=== PATIENT | female | born 1995 | race Caucasian/White ===

== ENCOUNTER 2019-08-23 10:43 | Emergency (ER) | payer MEDICAID ==
[~2019-08-23] VITALS: Ht 170.2 cm; Wt 56.2 kg
[2019-08-23] MEDS ORDERED: LORAZEPAM 0.5 MG TABLET PO ONE (11:00)
[2019-08-23] MEDS ORDERED: LORAZEPAM 0.5 MG TABLET ONE (11:17)
--- NOTE | 2019-08-23 11:23 | NUR ---
PT IS IN ROOM #1A. DR SHAH EVALUATED THE PT.
[2019-08-23 11:25] LABS: BASOPHILS # (AUTO) 0.1 K/uL (0.0-8.0); BASOPHILS % (AUTO) 0.5 % (0.0-2.0); EOSINOPHILS # (AUTO) 0.1 K/uL (0.0-0.7); EOSINOPHILS % (AUTO) 1.1 % (0.0-7.0); HEMATOCRIT 40.6 % (31.2-41.9); HEMOGLOBIN 13.5 g/dL (10.9-14.3); LYMPHOCYTES # (AUTO) 1.2 K/uL (20.0-40.0); LYMPHOCYTES % (AUTO) 12.8 % (20.5-51.5); MEAN CORPUSCULAR HEMOGLOBIN 31.9 uug (24.7-32.8); MEAN CORPUSCULAR HGB CONC 33 g/dL (32.3-35.6); MEAN CORPUSCULAR VOLUME 95.8 fL (75.5-95.3); MONOCYTES # (AUTO) 0.4 K/uL (2.0-10.0); MONOCYTES % (AUTO) 4.2 % (0.0-11.0); NEUTROPHILS # (AUTO) 7.6 K/uL (1.8-8.9); NEUTROPHILS % (AUTO) 81.4 % (38.5-71.5); PLATELET COUNT (AUTO) 236 K/uL (179-408); RED BLOOD CELL COUNT(AUTO) 4.24 MIL/uL (3.63-4.92); WHITE BLOOD COUNT (AUTO) 9.3 K/uL (3.8-11.8)
[2019-08-23 11:46] LABS: CARBON DIOXIDE 22 mmol/L (21-32); CHLORIDE 106 mmol/L (98-107); CREATININE 0.8 mg/dL (0.6-1.3); GLUCOSE 96 mg/dL (74-106); POTASSIUM 3.7 mmol/L (3.5-5.1); UREA NITROGEN, BLOOD 9 mg/dL (7-18)
[2019-08-23 11:53] LABS: ALANINE AMINOTRANSFERASE 70 U/L (14-59); ALKALINE PHOSPHATASE 49 U/L (50-136); ASPARTATE AMINOTRANSFERASE 60 U/L (15-37); BILIRUBIN,DIRECT 0.2 mg/dL (0.0-0.2); BILIRUBIN,TOTAL 0.7 mg/dL (0.2-1.0); LIPASE 126 U/L (73-393); TOTAL PROTEIN, SERUM 7.9 g/dL (6.4-8.2)
[2019-08-23] MEDS ORDERED: ONDANSETRON ODT 4 MG TAB.RAPDIS SL ONE (12:45)
[2019-08-23] MEDS ORDERED: ONDANSETRON ODT 4 MG TAB.RAPDIS ONE (12:46)
[2019-08-23 13:43] VITALS: BP 126/69
--- NOTE | 2019-08-23 13:44 | NUR ---
PT WAS D/C'd TO HOME. D/C INSTRUCTIONS GIVEN TO THE PT.
== END 2019-08-23 13:44 | disposition home or self-care (01) ==
LOC: ER 10:43
DX: F41.8 Other specified anxiety disorders (principal); R11.10 Vomiting, unspecified
CPT/HCPCS: 36415; 83690; 85025; 93005; A4663; Q0162

== ENCOUNTER 2019-12-30 21:39 | Emergency (ER) | payer BC, MEDICAID ==
[~2019-12-30] VITALS: Ht 170.2 cm; Wt 56.7 kg
--- NOTE | 2019-12-30 21:50 | NUR ---
Dr. Moser at bedside for MSE
[2019-12-30] MEDS ORDERED: ALPRAZOLAM 0.5 MG TABLET ONE (22:07)
[2019-12-30] MEDS ORDERED: ALPRAZOLAM 0.25 MG TABLET PO ONE (22:15)
--- NOTE | 2019-12-30 22:27 | NUR ---
Patient discharged to home in stable condition. Written and verbal after care instructions given. Patient verbalizes understanding of instructions. Stressed follow up or return to ER for worsening s/s. patient ambulating with steady gait. Patient noted getting into an [employer] outside of ED. NAD noted
[2019-12-30 22:33] VITALS: BP 134/77
== END 2019-12-30 22:27 | disposition home or self-care (01) ==
LOC: ER 21:42
DX: F41.9 Anxiety disorder, unspecified (principal)
CPT/HCPCS: A4663

== ENCOUNTER 2020-04-23 14:03 | Emergency (ER) | payer BC ==
[~2020-04-23] VITALS: Ht 170.2 cm; Wt 56.7 kg
[2020-04-23] MEDS ORDERED: PANTOPRAZOLE SODIUM 40 MG VIAL IV ONE (14:30)
[2020-04-23] MEDS ORDERED: IV NORMAL SALINE 1000 ML BAG IV ONE (14:30)
[2020-04-23] MEDS ORDERED: SUCRALFATE 1 G/10 ML LIQUID UDC GT SCH (14:30)
[2020-04-23] MEDS ORDERED: PANTOPRAZOLE SODIUM 40 MG VIAL ONE (14:43)
[2020-04-23] MEDS ORDERED: SUCRALFATE 1 G/10 ML LIQUID UDC ONE (14:44)
[2020-04-23 14:55] LABS: BASOPHILS % (AUTO) 0.4 % (0.0-2.0); EOSINOPHILS # (AUTO) 0.1 K/uL (0.0-0.7); EOSINOPHILS % (AUTO) 1.1 % (0.0-7.0); HEMATOCRIT 37.7 % (31.2-41.9); HEMOGLOBIN 12.9 g/dL (10.9-14.3); LYMPHOCYTES % (AUTO) 9.6 % (20.5-51.5); MEAN CORPUSCULAR HGB CONC 34 g/dL (32.3-35.6); MEAN CORPUSCULAR VOLUME 96.5 fL (75.5-95.3); MONOCYTES % (AUTO) 9.7 % (0.0-11.0); NEUTROPHILS # (AUTO) 8.2 K/uL (1.8-8.9); NEUTROPHILS % (AUTO) 79.2 % (38.5-71.5); PLATELET COUNT (AUTO) 190 K/uL (179-408); RED BLOOD CELL COUNT(AUTO) 3.91 MIL/uL (3.63-4.92); WHITE BLOOD COUNT (AUTO) 10.3 K/uL (3.8-11.8)
[2020-04-23 15:04] LABS: CREATININE 0.8 mg/dL (0.6-1.3); POTASSIUM 3.7 mmol/L (3.5-5.1)
[2020-04-23 15:10] LABS: BILIRUBIN,DIRECT 0.5 mg/dL (0.0-0.2); BILIRUBIN,TOTAL 1.1 mg/dL (0.2-1.0); TOTAL PROTEIN, SERUM 7.3 g/dL (6.4-8.2)
--- NOTE | 2020-04-23 16:16 | NUR ---
Patient discharged to home in stable condition. Written and verbal after care instructions given. Patient verbalizes understanding of instructions. Stressed follow up or return to ER for worsening s/s.PT WALKS IN STEADY GAIT. PT SAYS FEELS BETTER.
[2020-04-23 16:17] VITALS: BP 121/79
== END 2020-04-23 16:18 | disposition home or self-care (01) ==
LOC: ER 14:05
DX: T37.8X1A Poisoning by other specified systemic anti-infectives and antiparasitics, accidental (unintentional), initial encounter (principal); T51.0X1A Toxic effect of ethanol, accidental (unintentional), initial encounter; R11.2 Nausea with vomiting, unspecified; K29.71 Gastritis, unspecified, with bleeding; Y92.89 Other specified places as the place of occurrence of the external cause; N76.0 Acute vaginitis; F41.9 Anxiety disorder, unspecified; R74.0 Nonspecific elevation of levels of transaminase and lactic acid dehydrogenase [LDH]; K76.0 Fatty (change of) liver, not elsewhere classified
CPT/HCPCS: 36415; 71045; 76705; 80048; 80076; 83690; 85025; 96361; 96374; 99284; C9113; A4663; J7030

== ENCOUNTER 2020-08-07 13:13 | Emergency (ER) | payer BC ==
[~2020-08-07] VITALS: Ht 170.2 cm; Wt 59.0 kg
[2020-08-07] MEDS ORDERED: IBUPROFEN 800 MG TABLET PO ONE (14:00)
--- NOTE | 2020-08-07 14:28 | NUR ---
MEDICATED FOR PAIN PER MD ORDER.
[2020-08-07] MEDS ORDERED: IBUPROFEN 800 MG TABLET ONE (14:30)
[2020-08-07 14:47] LABS: *BILIRUBIN,URIN NEGATIVE (NEGATIVE); *BLOOD, URINE NEGATIVE (NEGATIVE); *CLARITY,URINE CLEAR (CLEAR); *COLOR,URINE YELLOW (YELLOW); *KETONES,URINE NEGATIVE (NEGATIVE); *UROBILINOGEN,URINE 0.2 E.U./dl (NORMAL); LEUKOCYTE ESTERASE ,URINE NEGATIVE (NEGATIVE); NITRITE, URINE NEGATIVE (NEGATIVE); UGLUCOSE NEGATIVE (NEGATIVE)
[2020-08-07 14:50] LABS: *URINE HCG, QUAL NEGATIVE (NEGATIVE)
[2020-08-07 16:13] VITALS: BP 134/74
== END 2020-08-07 16:14 | disposition home or self-care (01) ==
LOC: ER 13:14
DX: M54.5 Low back pain (principal)
CPT/HCPCS: 72131; 84703; A4663

== ENCOUNTER 2020-08-10 12:50 | Emergency (ER) | payer BC ==
[~2020-08-10] VITALS: Ht 170.2 cm; Wt 59.0 kg
[2020-08-10] MEDS ORDERED: ONDANSETRON ODT 4 MG TAB.RAPDIS SL ONE (13:15)
[2020-08-10] MEDS ORDERED: ONDANSETRON ODT 4 MG TAB.RAPDIS ONE (13:22)
--- NOTE | 2020-08-10 13:30 | NUR ---
PT WAS EVALUATED BY DR RANDLE. PT WAS D/C'd TO HOME. D/C INSTRUCTIONS GIVEN TO THE PT BY DR RANDLE.
[2020-08-10 13:32] VITALS: BP 128/68
== END 2020-08-10 13:32 | disposition home or self-care (01) ==
LOC: ER 12:50
DX: R11.2 Nausea with vomiting, unspecified (principal); T40.2X5A Adverse effect of other opioids, initial encounter; Y92.89 Other specified places as the place of occurrence of the external cause; M54.5 Low back pain
CPT/HCPCS: A4663; Q0162

== ENCOUNTER 2020-08-11 01:41 | Emergency (ER) | payer BC ==
[~2020-08-11] VITALS: Ht 170.2 cm; Wt 59.0 kg
--- NOTE | 2020-08-11 01:58 | NUR ---
Dr. Moser at bedside for MSE.
[2020-08-11] MEDS ORDERED: ONDANSETRON 4 MG/2 ML VIAL ONE ×2 (02:11→02:53)
[2020-08-11] MEDS ORDERED: ONDANSETRON 4 MG/2 ML VIAL IV ONE ×2 (02:15→02:45)
[2020-08-11] MEDS ORDERED: IV D5LR 1,000 ML IV ONE (02:15)
[2020-08-11 02:21] LABS: BASOPHILS % (AUTO) 0.3 % (0.0-2.0); EOSINOPHILS % (AUTO) 0.2 % (0.0-7.0); HEMATOCRIT 43.1 % (31.2-41.9); HEMOGLOBIN 14.6 g/dL (10.9-14.3); LYMPHOCYTES # (AUTO) 1.2 K/uL (20.0-40.0); LYMPHOCYTES % (AUTO) 9.5 % (20.5-51.5); MEAN CORPUSCULAR HEMOGLOBIN 33.8 uug (24.7-32.8); MEAN CORPUSCULAR HGB CONC 34 g/dL (32.3-35.6); MEAN CORPUSCULAR VOLUME 99.8 fL (75.5-95.3); MONOCYTES # (AUTO) 1.1 K/uL (2.0-10.0); PLATELET COUNT (AUTO) 258 K/uL (179-408); RED BLOOD CELL COUNT(AUTO) 4.32 MIL/uL (3.63-4.92); WHITE BLOOD COUNT (AUTO) 12.3 K/uL (3.8-11.8)
[2020-08-11 02:26] LABS: CREATININE 1.3 mg/dL (0.6-1.3); POTASSIUM 3.4 mmol/L (3.5-5.1)
[2020-08-11 02:37] LABS: BILIRUBIN,DIRECT 1.9 mg/dL (0.0-0.2); BILIRUBIN,TOTAL 3.3 mg/dL (0.2-1.0); TOTAL PROTEIN, SERUM 8.8 g/dL (6.4-8.2)
[2020-08-11] MEDS ORDERED: HYDROMORPHONE 1 MG/1 ML DISP.SYRIN IV ONE (02:45)
[2020-08-11] MEDS ORDERED: DEXAMETHASONE SOD PHOSPHATE 4 MG INJ IV ONE (02:45)
[2020-08-11] MEDS ORDERED: KETOROLAC TROMETHAMINE 30 MG INJ IVP ONE (02:45)
[2020-08-11] MEDS ORDERED: DEXAMETHASONE SOD PHOSPHATE 4 MG INJ ONE (02:51)
[2020-08-11] MEDS ORDERED: HYDROMORPHONE 1 MG/1 ML DISP.SYRIN ONE (02:52)
[2020-08-11] MEDS ORDERED: KETOROLAC TROMETHAMINE 30 MG INJ ONE (02:53)
--- NOTE | 2020-08-11 02:59 | NUR ---
Pt provided urine sample, sent to lab.
[2020-08-11 03:03] LABS: *BILIRUBIN,URIN 1+ (NEGATIVE); *BLOOD, URINE NEGATIVE (NEGATIVE); *CLARITY,URINE CLEAR (CLEAR); *COLOR,URINE AMBER (YELLOW); *KETONES,URINE 2+ (NEGATIVE); LEUKOCYTE ESTERASE ,URINE NEGATIVE (NEGATIVE); NITRITE, URINE NEGATIVE (NEGATIVE); PH,URINE 8.5 (5.0-8.0); UGLUCOSE 2+ (NEGATIVE)
[2020-08-11 03:06] LABS: *URINE HCG, QUAL NEGATIVE (NEGATIVE)
[2020-08-11] MEDS ORDERED: IV NORMAL SALINE 1000 ML BAG IV ONE (03:15)
[2020-08-11] MEDS ORDERED: MAG HYDROX/AL HYDROX/SIMETH 30 ML LIQUID UDC ONE (03:38)
[2020-08-11] MEDS ORDERED: LIDOCAINE VISCUS 2% 15 ML UDC ONE (03:38)
[2020-08-11] MEDS ORDERED: MAG HYDROX/AL HYDROX/SIMETH 30 ML LIQUID UDC PO ONE (03:45)
[2020-08-11] MEDS ORDERED: LIDOCAINE VISCUS 2% 15 ML UDC MM ONE (03:45)
--- NOTE | 2020-08-11 03:51 | NUR ---
Patient discharged to home in stable condition. Written and verbal after care instructions given. Patient verbalizes understanding of instructions. Stressed follow up or return to ER for worsening s/s. Patient ambulated out of ER with steady gait, no acute signs of distress, VSS, all belongings taken, IV site discontinued, provided with copies of diagnostic and lab results, instructed not to drive, has a ride home.
[2020-08-11 03:52] VITALS: BP 129/78
== END 2020-08-11 03:52 | disposition home or self-care (01) ==
LOC: ER 01:41
DX: R11.2 Nausea with vomiting, unspecified (principal); M54.5 Low back pain; F41.9 Anxiety disorder, unspecified; R03.0 Elevated blood-pressure reading, without diagnosis of hypertension
CPT/HCPCS: 36415; 80048; 80076; 81003; 83690; 84703; 85025; 96361; 96374; 96375; 96376; 99284; J1100; J1170; J1885; J2405 ×2; J3490; A4663; J7030

== ENCOUNTER 2020-10-24 10:35 | Emergency (ER) | payer BC, OTHER ==
[~2020-10-24] VITALS: Ht 170.2 cm; Wt 59.0 kg
[2020-10-24] MEDS ORDERED: IV NORMAL SALINE 1000 ML BAG IV ONE (11:00)
[2020-10-24] MEDS ORDERED: ONDANSETRON 4 MG/2 ML VIAL IV ONE ×2 (11:00→12:15)
[2020-10-24] MEDS ORDERED: ONDANSETRON 4 MG/2 ML VIAL ONE ×2 (11:10→12:13)
[2020-10-24 11:14] LABS: BASOPHILS % (AUTO) 0.4 % (0.0-2.0); EOSINOPHILS # (AUTO) 0.1 K/uL (0.0-0.7); HEMATOCRIT 43.1 % (31.2-41.9); HEMOGLOBIN 14.5 g/dL (10.9-14.3); LYMPHOCYTES # (AUTO) 1.6 K/uL (20.0-40.0); LYMPHOCYTES % (AUTO) 24.3 % (20.5-51.5); MEAN CORPUSCULAR HEMOGLOBIN 33.8 uug (24.7-32.8); MEAN CORPUSCULAR HGB CONC 34 g/dL (32.3-35.6); MEAN CORPUSCULAR VOLUME 100.3 fL (75.5-95.3); MONOCYTES # (AUTO) 0.5 K/uL (2.0-10.0); MONOCYTES % (AUTO) 7.9 % (0.0-11.0); NEUTROPHILS # (AUTO) 4.5 K/uL (1.8-8.9); NEUTROPHILS % (AUTO) 66.4 % (38.5-71.5); PLATELET COUNT (AUTO) 212 K/uL (179-408); WHITE BLOOD COUNT (AUTO) 6.7 K/uL (3.8-11.8)
[2020-10-24 11:21] LABS: CARBON DIOXIDE 26 mmol/L (21-32); CHLORIDE 102 mmol/L (98-107); GLUCOSE 114 mg/dL (74-106); POTASSIUM 4.3 mmol/L (3.5-5.1); UREA NITROGEN, BLOOD 8 mg/dL (7-18)
[2020-10-24 11:26] LABS: ALANINE AMINOTRANSFERASE 156 U/L (14-59); ALKALINE PHOSPHATASE 114 U/L (50-136); ASPARTATE AMINOTRANSFERASE 275 U/L (15-37); BILIRUBIN,DIRECT 1.3 mg/dL (0.0-0.2); BILIRUBIN,TOTAL 2.2 mg/dL (0.2-1.0); LIPASE 163 U/L (73-393); TOTAL PROTEIN, SERUM 8.2 g/dL (6.4-8.2)
[2020-10-24] MEDS ORDERED: MAG HYDROX/AL HYDROX/SIMETH 30 ML LIQUID UDC PO ONE (12:00)
[2020-10-24] MEDS ORDERED: DICYCLOMINE HCL LIQ 10 MG/5 ML UDC PO ONE (12:00)
[2020-10-24] MEDS ORDERED: LIDOCAINE VISCUS 2% 15 ML UDC MM ONE (12:00)
[2020-10-24] MEDS ORDERED: ESOM20CA32 PO (12:01)
[2020-10-24] MEDS ORDERED: MAG HYDROX/AL HYDROX/SIMETH 30 ML LIQUID UDC ONE (12:08)
[2020-10-24] MEDS ORDERED: LIDOCAINE VISCUS 2% 15 ML UDC ONE (12:09)
[2020-10-24] MEDS ORDERED: DICYCLOMINE HCL LIQ 10 MG/5 ML UDC ONE (12:09)
[2020-10-24 12:20] VITALS: BP 111/72
--- NOTE | 2020-10-24 12:20 | NUR ---
Patient discharged to home in stable condition. Written and verbal after care instructions given. Patient verbalizes understanding of instructions. Stressed follow up or return to ER for worsening s/s.
== END 2020-10-24 12:20 | disposition home or self-care (01) ==
LOC: ER 10:35
DX: K29.70 Gastritis, unspecified, without bleeding (principal); R05 Cough; R06.02 Shortness of breath; Z20.822 Contact with and (suspected) exposure to COVID-19
CPT/HCPCS: 36415; 80048; 80076; 83690; 84702; 85025; 87426; 96361; 96374; 96376; 99284; J2405 ×2; A4663; J7030

== ENCOUNTER 2020-11-24 00:05 | Emergency (ER) | payer BC ==
[~2020-11-24] VITALS: Ht 170.2 cm; Wt 59.9 kg
[~2020-11-24 00:05] MED LIST: ESOM20CA32 PO
--- NOTE | 2020-11-24 00:20 | NUR ---
Came in ambulatory c/o n/v and diarrhea 3 days [employer]. Patient mildly to moderately anxious. Seen and evaluated by Dr. Moser.
[2020-11-24] MEDS: IV NORMAL SALINE 1000 ML BAG IV ONE (00:33)
--- NOTE | 2020-11-24 00:35 | NUR ---
Labs drawn; IV NS started to LW. Patient still anxious. Reassured appropriately.
[2020-11-24 00:45] LABS: BASOPHILS % (AUTO) 0.3 % (0.0-2.0); HEMATOCRIT 41.5 % (31.2-41.9); LYMPHOCYTES # (AUTO) 0.6 K/uL (20.0-40.0); MEAN CORPUSCULAR HGB CONC 34 g/dL (32.3-35.6); MEAN CORPUSCULAR VOLUME 100.8 fL (75.5-95.3); MONOCYTES # (AUTO) 0.6 K/uL (2.0-10.0); MONOCYTES % (AUTO) 4.7 % (0.0-11.0); NEUTROPHILS # (AUTO) 11.2 K/uL (1.8-8.9); PLATELET COUNT (AUTO) 261 K/uL (179-408); RED BLOOD CELL COUNT(AUTO) 4.12 MIL/uL (3.63-4.92); WHITE BLOOD COUNT (AUTO) 12.5 K/uL (3.8-11.8)
[2020-11-24] MEDS: LORAZEPAM 2 MG/1 ML VIAL IV ONE ×2 (00:45→02:02)
[2020-11-24] MEDS ORDERED: LORAZEPAM 2 MG/1 ML VIAL ONE ×2 (00:45→01:58)
[2020-11-24] MEDS ORDERED: ONDANSETRON 4 MG/2 ML VIAL ONE (00:46)
[2020-11-24] MEDS ORDERED: HALOPERIDOL LACTATE 5 MG/1 ML VIAL ONE (00:46)
[2020-11-24] MEDS: ONDANSETRON 4 MG/2 ML VIAL IV ONE (00:47)
[2020-11-24] MEDS: HALOPERIDOL LACTATE 5 MG/1 ML VIAL IV ONE (00:50)
[2020-11-24] MEDS ORDERED: CAPS60CR4 TP (00:52)
[2020-11-24] MEDS ORDERED: ONDA4TAB5 PO (00:52)
[2020-11-24 00:56] LABS: ALANINE AMINOTRANSFERASE 165 U/L (14-59); ALKALINE PHOSPHATASE 108 U/L (50-136); ASPARTATE AMINOTRANSFERASE 339 U/L (15-37); BILIRUBIN,DIRECT 1.8 mg/dL (0.0-0.2); BILIRUBIN,TOTAL 2.6 mg/dL (0.2-1.0); CARBON DIOXIDE 20 mmol/L (21-32); CHLORIDE 95 mmol/L (98-107); CREATININE 1.4 mg/dL (0.6-1.3); GLUCOSE 133 mg/dL (74-106); LIPASE 90 U/L (73-393); POTASSIUM 3.8 mmol/L (3.5-5.1); TOTAL PROTEIN, SERUM 8.7 g/dL (6.4-8.2); UREA NITROGEN, BLOOD 16 mg/dL (7-18)
[2020-11-24] MEDS ORDERED: LIDOCAINE VISCUS 2% 15 ML UDC ONE (01:59)
[2020-11-24] MEDS ORDERED: MAG HYDROX/AL HYDROX/SIMETH 30 ML LIQUID UDC ONE (02:01)
[2020-11-24] MEDS: LIDOCAINE VISCUS 2% 15 ML UDC MM ONE (02:03)
[2020-11-24] MEDS: MAG HYDROX/AL HYDROX/SIMETH 30 ML LIQUID UDC PO ONE (02:03)
[2020-11-24 02:49] VITALS: BP 120/70
== END 2020-11-24 02:25 | disposition home or self-care (01) ==
LOC: ER 00:06
DX: R11.2 Nausea with vomiting, unspecified (principal); F12.90 Cannabis use, unspecified, uncomplicated; F41.9 Anxiety disorder, unspecified; R74.01 Elevation of levels of liver transaminase levels; R00.0 Tachycardia, unspecified
CPT/HCPCS: 36415; 80048; 80076; 83690; 84702; 85025; 93005; 96361; 96374; 96375; 96376; 99285; J1630; J2060 ×2; J2405; J7030

== ENCOUNTER 2020-12-13 16:59 | Emergency (ER) | payer BC ==
[~2020-12-13] VITALS: Ht 170.2 cm; Wt 58.1 kg
[~2020-12-13 16:59] MED LIST changes: +CAPS60CR4 TP; +ONDA4TAB5 PO
[2020-12-13 17:44] LABS: *BILIRUBIN,URIN NEGATIVE (NEGATIVE); *CLARITY,URINE CLEAR (CLEAR); *COLOR,URINE YELLOW (YELLOW); *KETONES,URINE NEGATIVE (NEGATIVE); LEUKOCYTE ESTERASE ,URINE NEGATIVE (NEGATIVE); NITRITE, URINE NEGATIVE (NEGATIVE); PH,URINE 6.5 (5.0-8.0); UGLUCOSE NEGATIVE (NEGATIVE)
[2020-12-13 17:45] LABS: *BLOOD, URINE TRACE INTACT (NEGATIVE)
[2020-12-13 17:46] LABS: *URINE HCG, QUAL NEGATIVE (NEGATIVE)
[2020-12-13 17:54] LABS: BACTERIA,URINE FEW /HPF (NONE SEEN); SQUAMOUS EPITHELIAL CELL,UR FEW /HPF (NONE SEEN); WBC,URINE 0-3 /HPF (0-3)
--- NOTE | 2020-12-13 19:04 | NUR ---
Pt resting in bed, no S/S N/V noted.
--- NOTE | 2020-12-13 20:30 | NUR ---
Patient discharged to home in stable condition. Written and verbal after care instructions given. Patient verbalizes understanding of instructions. Stressed follow up or return to ER for worsening s/s. Patient A/Ox4 and able to ambulate with steady gait.
[2020-12-13 21:04] VITALS: BP 131/79
== END 2020-12-13 21:05 | disposition home or self-care (01) ==
LOC: ER 17:01
DX: R11.2 Nausea with vomiting, unspecified (principal)
CPT/HCPCS: 84703; A4663

== ENCOUNTER 2021-04-03 20:33 | Emergency (ER) | payer BC, MEDICAID ==
[~2021-04-03] VITALS: Ht 165.1 cm; Wt 54.4 kg
[~2021-04-03 20:33] MED LIST changes: -CAPS60CR4 TP; -ESOM20CA32 PO
--- NOTE | 2021-04-03 20:44 | NUR ---
ERMD at bedside for MSE.
[2021-04-03] MEDS ORDERED: KETOROLAC TROMETHAMINE 30 MG INJ ONE (21:07)
[2021-04-03] MEDS ORDERED: DEXAMETHASONE SOD PHOSPHATE 10 MG INJ ONE (21:08)
[2021-04-03 21:17] LABS: HEMATOCRIT 33.4 % (31.2-41.9); MEAN CORPUSCULAR HEMOGLOBIN 35.8 uug (24.7-32.8); MEAN CORPUSCULAR VOLUME 103.5 fL (75.5-95.3); PLATELET COUNT (AUTO) 201 K/uL (179-408)
[2021-04-03 21:18] LABS: CARBON DIOXIDE 25 mmol/L (21-32); CHLORIDE 102 mmol/L (98-107); CREATININE 0.8 mg/dL (0.6-1.3); GLUCOSE 112 mg/dL (74-106); POTASSIUM 3.2 mmol/L (3.5-5.1); UREA NITROGEN, BLOOD 5 mg/dL (7-18)
[2021-04-03] MEDS: DEXAMETHASONE SOD PHOSPHATE 4 MG INJ IV ONE (21:19)
[2021-04-03] MEDS: KETOROLAC TROMETHAMINE 30 MG INJ IVP ONE (21:19)
[2021-04-03 21:21] LABS: *BILIRUBIN,URIN NEGATIVE (NEGATIVE); *BLOOD, URINE 2+ (NEGATIVE); *CLARITY,URINE CLEAR (CLEAR); *COLOR,URINE YELLOW (YELLOW); *KETONES,URINE NEGATIVE (NEGATIVE); *UROBILINOGEN,URINE 0.2 E.U./dl (NORMAL); LEUKOCYTE ESTERASE ,URINE NEGATIVE (NEGATIVE); NITRITE, URINE NEGATIVE (NEGATIVE); PH,URINE 5.5 (5.0-8.0); UGLUCOSE NEGATIVE (NEGATIVE)
[2021-04-03 21:24] LABS: ALANINE AMINOTRANSFERASE 121 U/L (14-59); ALKALINE PHOSPHATASE 170 U/L (50-136); ASPARTATE AMINOTRANSFERASE 191 U/L (15-37); BILIRUBIN,TOTAL 3.2 mg/dL (0.2-1.0); TOTAL PROTEIN, SERUM 7.4 g/dL (6.4-8.2)
[2021-04-03 21:25] LABS: *URINE HCG, QUAL NEGATIVE (NEGATIVE)
[2021-04-03 21:30] LABS: BACTERIA,URINE NONE SEEN /HPF (NONE SEEN); SQUAMOUS EPITHELIAL CELL,UR NONE SEEN /HPF (NONE SEEN); WBC,URINE 0-3 /HPF (0-3)
--- NOTE | 2021-04-03 23:09 | NUR ---
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 no acute distress at this time.
--- NOTE | 2021-04-04 00:57 | NUR ---
Neurology personal banking assistant Dr. Roberson paged.
--- NOTE | 2021-04-04 02:08 | NUR ---
Patient returned from MRI, alert and oriented, no distress noted.
--- NOTE | 2021-04-04 03:04 | NUR ---
Dr Hilario speaking with Dr Vega hospitalist from [facility].
--- NOTE | 2021-04-04 04:49 | NUR ---
Patient does not wish to proceed with medical care recommended by Dr. Vincent. Patient given information related to possible complications, up to and including , which could occur as a result of leaving the hospital at this time. Patient verbalizes understanding of risks involved due to leaving against medical advice. Patient has signed AMA form.
[2021-04-04 04:50] VITALS: BP 117/61
== END 2021-04-04 04:50 | disposition left against medical advice (07) ==
LOC: ER 20:33
DX: R20.2 Paresthesia of skin (principal); M79.605 Pain in left leg; M79.604 Pain in right leg; F41.9 Anxiety disorder, unspecified; Z20.822 Contact with and (suspected) exposure to COVID-19; Z53.29 Procedure and treatment not carried out because of patient's decision for other reasons
CPT/HCPCS: 36415; 72156; 72158; 80053; 81001; 84702; 84703; 85025; 87426; 96374; 96375; 99285; J1100; J1885; 70030-TC; A4663

== ENCOUNTER 2021-04-10 17:38 | Inpatient (IN) | payer MEDICAID ==
[~2021-04-10] VITALS: Ht 170.2 cm; Wt 59.0 kg
[2021-04-10 18:37] LABS: HEMATOCRIT 34.8 % (31.2-41.9); MEAN CORPUSCULAR HEMOGLOBIN 35.7 uug (24.7-32.8); MEAN CORPUSCULAR VOLUME 103.5 fL (75.5-95.3); PLATELET COUNT (AUTO) 249 K/uL (179-408)
[2021-04-10 18:38] LABS: CREATININE 0.8 mg/dL (0.6-1.3); POTASSIUM 4.2 mmol/L (3.5-5.1)
[2021-04-10 18:45] LABS: BILIRUBIN,DIRECT 4.2 mg/dL (0.0-0.2); BILIRUBIN,TOTAL 4.8 mg/dL (0.2-1.0); TOTAL PROTEIN, SERUM 7.8 g/dL (6.4-8.2)
--- NOTE | 2021-04-10 19:21 | NUR ---
Dr Moser at bedside for MSE.
[2021-04-10] MEDS ORDERED: IV NS 1000 ML 1,000 ML IV ONE ×2 (20:10→20:15)
[2021-04-10 21:14] LABS: *BLOOD, URINE NEGATIVE (NEGATIVE); *CLARITY,URINE CLEAR (CLEAR); *COLOR,URINE YELLOW (YELLOW); *KETONES,URINE NEGATIVE (NEGATIVE); LEUKOCYTE ESTERASE ,URINE NEGATIVE (NEGATIVE); NITRITE, URINE NEGATIVE (NEGATIVE); UGLUCOSE NEGATIVE (NEGATIVE)
[2021-04-10 21:15] LABS: *BILIRUBIN,URIN 1+ (NEGATIVE); *URINE HCG, QUAL NEGATIVE (NEGATIVE)
--- NOTE | 2021-04-10 21:32 | NUR ---
Patient picked up for CT by Adryan.
--- NOTE | 2021-04-10 21:40 | NUR ---
Back from CT
[2021-04-10] MEDS ORDERED: KETOROLAC TROMETHAMINE 15 MG INJ ONE (22:24)
[2021-04-10] MEDS: KETOROLAC TROMETHAMINE 15 MG INJ IM ONE (22:30)
--- NOTE | 2021-04-10 22:35 | NUR ---
Paged Epic panel speech correction assistant for inpatient admission, waiting for Aliyah Brown to call back.
--- NOTE | 2021-04-10 22:50 | NUR ---
Dr Lemus on panel call with Dr. Brown. Patient accepted for admission to MS unit, Dx of Obstructive Hepatopathy.
--- NOTE | 2021-04-10 23:00 | NUR ---
Received admission report from ER nurse NIKKI Terry
[2021-04-10] MEDS ORDERED: MAGNESIUM HYDROXIDE 30 ML LIQUID UDC PO PRN (23:30)
[2021-04-10] MEDS ORDERED: ACETAMINOPHEN 325 MG TABLET PO PRN (23:30)
[2021-04-10] MEDS ORDERED: ONDANSETRON 4 MG/2 ML VIAL IV PRN (23:30)
[2021-04-10] MEDS ORDERED: Z GUARD REMEDY PASTE 57 GM TUBE TOP PRN (23:30)
--- NOTE | 2021-04-10 23:35 | NUR ---
Pt. admitted to MS unit, room 316, under care of Dr. Brown. Belongs List completed.
--- NOTE | 2021-04-10 23:54 | NUR ---
Patient was wheeled to the floor by ER nurse via wheel chair. Awake, calm, and oriented x 4. Able to make needs known. Patient expressed hesitancy of being admitted tonight due to school and work tomorrow. Instructed patient to prioritized health issues for now and doctor will update her condition during her stay and patient agreed. Routine admission care done. Plan of care initiated.
[2021-04-11 00:42] VITALS: BP 121/80
[2021-04-11] MEDS: IV D5 1/2 NS 1000 ML 1,000 ML IV PRN ×2 (01:07→18:40)
--- NOTE | 2021-04-11 01:36 | NUR ---
Left message for Dr. Paul Rojo for patient complaining of both lower extremity pain in scale 8/10 needs stronger pain medication.
--- NOTE | 2021-04-11 02:00 | NUR ---
Called Epic exchange, will text Dr. Arriaga
--- NOTE | 2021-04-11 02:25 | NUR ---
Dr rAriaga called with new order of Toradol 15 mg IVP x 1 only, noted and carried out.
[2021-04-11] MEDS ORDERED: KETOROLAC TROMETHAMINE 15 MG INJ IVP ONE (02:45)
[2021-04-11] MEDS ORDERED: KETOROLAC TROMETHAMINE 15 MG INJ ONE (02:55)
--- NOTE | 2021-04-11 03:00 | NUR ---
Medicated patient for complaint of bilateral leg pain in scale of 8/10. Will monitor.
[2021-04-11 04:00] VITALS: BP 121/72
[2021-04-11 06:45] LABS: HEMATOCRIT 30.7 % (31.2-41.9); MEAN CORPUSCULAR HEMOGLOBIN 35.8 uug (24.7-32.8); MEAN CORPUSCULAR VOLUME 103.8 fL (75.5-95.3); PLATELET COUNT (AUTO) 137 K/uL (179-408)
[2021-04-11 07:14] LABS: CREATININE 0.7 mg/dL (0.6-1.3); MAGNESIUM 1.5 mg/dL (1.8-2.4); PHOSPHOROUS 3.2 mg/dL (2.5-4.9)
--- NOTE | 2021-04-11 07:30 | NUR ---
Patient received in bed, alert and oriented x4. NPO at this time. Patient aware she has NM scan for gallbladder this AM. On RA with no SOB or difficulties breathing. No acute distress noted. Right wrist IV running IVF as ordered with no redness or swelling noted. Call baptiste within easy reach. Will continue to monitor.
[2021-04-11 07:54] LABS: THYROID STIMULATING HORMONE 3.047 mIU/mL (0.358-3.740)
[2021-04-11] MEDS: PANTOPRAZOLE SODIUM 40 MG VIAL IV SCH (08:25)
--- NOTE | 2021-04-11 08:29 | NUR ---
Patient taken down via wheelchair for NM scan.
[2021-04-11] MEDS ORDERED: MORPHINE SULFATE 2 MG/1 ML DISP.SYRIN IV PRN (09:15)
[2021-04-11 09:23] LABS: IRON, SERUM 130 ug/dL (50-175)
[2021-04-11 11:20] VITALS: BP 141/88
[2021-04-11] MEDS: MAGNESIUM SULFATE/D5W 100 ML IV SCH ×2 (14:17→16:49)
[2021-04-11 15:36] VITALS: BP 131/77
[2021-04-11] MEDS: LORAZEPAM 2 MG/1 ML VIAL IV PRN ×2 (16:49→22:53)
[2021-04-11 20:16] VITALS: BP 131/79
[2021-04-12] MEDS: IV D5 1/2 NS 1000 ML 1,000 ML IV PRN (04:30)
[2021-04-12 04:47] VITALS: BP 128/87
[2021-04-12 06:34] LABS: MEAN CORPUSCULAR HEMOGLOBIN 35.5 uug (24.7-32.8); MEAN CORPUSCULAR VOLUME 104.1 fL (75.5-95.3); PLATELET COUNT (AUTO) 139 K/uL (179-408)
[2021-04-12 06:55] LABS: BILIRUBIN,TOTAL 4.5 mg/dL (0.2-1.0); CREATININE 0.6 mg/dL (0.6-1.3); PHOSPHOROUS 2.7 mg/dL (2.5-4.9); POTASSIUM 4.4 mmol/L (3.5-5.1); TOTAL PROTEIN, SERUM 6.3 g/dL (6.4-8.2)
[2021-04-12 07:28] LABS: NEUTROPHILS % (MANUAL) 0 % (42-75)
--- NOTE | 2021-04-12 07:30 | NUR ---
Patient received in bed, alert and oriented x4. On RA with no SOB or difficulties breathing. No acute distress noted. Right wrist IV running IVF as ordered with no redness or swelling noted. No c/o pain or discomforts at this time. Call baptiste within easy reach. Will continue to monitor.
[2021-04-12 07:52] VITALS: BP 136/73
[2021-04-12] MEDS: PANTOPRAZOLE SODIUM 40 MG VIAL IV SCH (08:00)
[2021-04-12 11:21] VITALS: BP 128/70
[2021-04-12] MEDS: LORAZEPAM 2 MG/1 ML VIAL IV PRN (11:42)
[2021-04-12 14:50] VITALS: BP 127/41
--- NOTE | 2021-04-12 19:00 | NUR ---
Patient discharged in satisfactory condition. As per Dr. Browning, okay to discharge with no home medications and okay to discharge with excuse note for school and work.
[2021-04-12 20:14] LABS: HEPATITIS A AB, TOTAL Positive
[2021-04-12 20:17] LABS: *ANTI-SCLERODERMA-70 AB <0.2; *SMITH ANTIBODIES <0.2; ANTI-DNA(DS) AB, QN <1
[2021-04-12 20:18] LABS: *SJOGREN'S ANTI-SS-A <0.2; *SJOGREN'S ANTI-SS-B <0.2
[2021-04-13] MEDS ORDERED: PANTOPRAZOLE SODIUM 40 MG TABLET.DR PO SCH (07:00)
[2021-04-17 14:36] LABS: HEPATITIS A AB, IgM NEGATIVE
[2021-04-17 14:37] LABS: HEPATITIS B SURFACE AG NEGATIVE
== END 2021-04-12 19:00 | disposition home or self-care (01) ==
LOC: ER 17:40 → MEDSURG3 23:21
PROVIDERS: ADMIT Internal Medicine; ATTEND Internal Medicine
DX: K76.9 Liver disease, unspecified (principal); E72.20 Disorder of urea cycle metabolism, unspecified; D69.6 Thrombocytopenia, unspecified; Z20.822 Contact with and (suspected) exposure to COVID-19; E78.1 Pure hyperglyceridemia; E83.42 Hypomagnesemia; K59.00 Constipation, unspecified; K76.0 Fatty (change of) liver, not elsewhere classified; R74.01 Elevation of levels of liver transaminase levels; D53.9 Nutritional anemia, unspecified; F41.9 Anxiety disorder, unspecified; K80.20 Calculus of gallbladder without cholecystitis without obstruction; F10.21 Alcohol dependence, in remission; F19.11 Other psychoactive substance abuse, in remission
CPT/HCPCS: 36415; 70030-TC; 76700; 78445; 83550; 83690; 83735; 84100; 84443; 84703; 85025; 85610; 85730; 86038; 86704; 86705; 86706; 86708; 86709; 86803; 87086; 87340; A4663; A9537; C9113; G0378; J1885; J2060; J2270; J3475; J3490; J7030; J7042